=== PATIENT | male | born 1990 | race Caucasian/White ===

== ENCOUNTER 2016-10-05 15:55 | Emergency (ER) | payer OTHER ==
[~2016-10-05] VITALS: Ht 165.1 cm; Wt 28.8 kg
[~2016-10-05 15:55] MED LIST: ERYTHROMYC1 APPLICAT RIGHT EYE; FLEXERIL10 MG PO; MOTRIN800 MG PO; NOHOMEMEDS
[2016-10-05 16:45] LABS: HEMATOCRIT 46.1 % (38.0-50.0); MCH 30.6 PG (29.0-34.0); MCHC 33.8 G/DL (30.0-36.0); MCV 90.4 FL (86-99); MEAN PLAT.VOLUME 8.9 uM^3 (9.0-12.4); PLATELET COUNT 228 K/uL (156-360); RBC DIS.WIDTH-CV 12.2 % (11.8-14.6); RBC DIS.WIDTH-SD 41.1 % (39-53); WHITE BLOOD COUNT 7.5 K/uL (4.1-10.2)
[2016-10-05 16:55] LABS: CHLORIDE 104 mEq/L (99-109); POTASSIUM 4.9 mEq/L (3.7-5.4); SODIUM 141 mEq/L (136-147)
[2016-10-05 16:57] LABS: GLUCOSE 102 mg/dL (70-99)
[2016-10-05 16:58] LABS: ANION GAP 9 MEQ/L (2-14)
[2016-10-05 17:01] LABS: GFR ESTIMATE (CALCULATED) > 59 mL/min/; UREA NITROGEN (BUN) 10 mg/dL (9-23)
[2016-10-05 17:07] LABS: TROP-I INTERPRETATION NEGATIVE; TROPONIN-I < 0.01 ng/mL (0.0-0.30)
[2016-10-05] MEDS ORDERED: LEVAQUIN500 MG PO (18:51)
[2016-10-05] MEDS ORDERED: TESSALON PERLE100 MG PO (18:51)
[2016-10-05] MEDS ORDERED: PREDNISONE20 MG PO (18:51)
[2016-10-05 19:12] LABS: TROP-I INTERPRETATION NEGATIVE; TROPONIN-I < 0.01 ng/mL (0.0-0.30)
[2016-10-05 19:29] VITALS: BP 144/87
== END 2016-10-05 19:30 | disposition home or self-care (01) ==
LOC: EME 15:55
PROVIDERS: Physician Assistant
DX: J18.0 Bronchopneumonia, unspecified organism (principal); R03.0 Elevated blood-pressure reading, without diagnosis of hypertension; F17.200 Nicotine dependence, unspecified, uncomplicated; Z71.6 Tobacco abuse counseling; Z83.6 Family history of other diseases of the respiratory system
CPT/HCPCS: 71020; 80048; 84484; 85027; 93005; 99281; 99284; J7512